=== PATIENT | female | born 1980 | race Caucasian/White ===

== ENCOUNTER → 2024-11-15 10:08 | Outpatient (REF) | payer BC, SELFPAY ==
[2024-11-15 11:19] LABS: % Basophils 0.4 % (0-2); % Eosinophils 1.1 % (0-6); % Immature Granulocytes 0.4 % (0-0.5); % Lymphocytes 24.3 % (20.5-51.1); % Monocytes 4.9 % (1.7-9.3); % Neutrophils 68.9 % (42.2-75.2); Absolute Basophils 0.1 10^3/uL (0-0.2); Absolute Eosinophils 0.1 10^3/uL (0-0.7); Absolute Immature Granulocytes 0.1 10^3/uL (0-0.05); Absolute Monocytes 0.6 10^3/uL (0.1-0.6); Absolute Neutrophils 8.5 10^3/uL (1.4-6.5); Hematocrit 37.3 % (37.0-47.0); Hemoglobin 12.8 g/dL (12.0-16.0); Mean Corp Hgb Conc. 34.3 g/dL (33.0-37.0); Mean Corpuscular Hgb 30.7 pg (27.0-31.0); Mean Corpuscular Volume 89.4 fL (81.0-99.0); Nucleated Red Blood Cells % 0 %; Platelet Count 330 10^3/uL (130-400); Red Blood Cell Count 4.17 10^6/uL (4.20-5.40); Red Cell Dist. Width 13.2 % (11.5-14.5); White Blood Cell Count 12.3 10^3/uL (4.8-10.8)
[2024-11-15 11:47] LABS: Glycohemoglobin (HgbA1c) 5.5 % (4.0-5.6)
[2024-11-15 11:56] LABS: ALT (SGPT) 21 U/L (0-35); AST (SGOT) 23 U/L (14-36); Albumin 4.4 g/dl (3.5-5.0); Alkaline Phosphatase 51 U/L (38-126); Blood Urea Nitrogen 25 mg/dl (7-17); Calcium 10.2 mg/dl (8.4-10.2); Carbon Dioxide 31 mmol/L (22-30); Chloride 96 mmol/L (98-107); Glucose 110 mg/dl (70-99); HDL Cholesterol 65 mg/dl; LDL Cholesterol, Calculated 90 mg/dl; Lipase 188 U/L (23-300); Potassium 3.6 mmol/L (3.5-5.1); Sodium 136 mmol/L (135-145); Total Bilirubin 0.6 mg/dl (0.2-1.3); Total Cholesterol 170 mg/dl (50-199); Total Protein 7.1 g/dl (6.3-8.2); Triglyceride 78 mg/dl (10-149); Very Low Density Lipoprotein 15 mg/dl (0-30); eGFR > 60.00
[2024-11-15 12:21] LABS: TSH 1.41 uIU/ml (0.47-4.68)
== END ==
LOC: REG 10:08
PROVIDERS: ATTENDING PHYSICIAN Surgery; FAMILY PHYSICIAN Family Medicine
DX: R73.03 Prediabetes (principal); Z86.39 Personal history of other endocrine, nutritional and metabolic disease; E66.811 Obesity, class 1
CPT/HCPCS: 36415; 80053; 80061; 83036; 83690; 84443; 85025